=== PATIENT | female | born 1970 | race Caucasian/White ===

== ENCOUNTER → 2017-07-24 | Outpatient (CLI) | payer OTHER ==
[~2017-07-24] MED LIST: OMEGA; TELM40 PO; [UNRECOGNIZED DRUG - CODE] PO; [UNRECOGNIZED DRUG - OTHER]; [UNRECOGNIZED DRUG - REMARK]
== END | disposition home or self-care (01) ==
LOC: RADPV 15:09
PROVIDERS: ATTEND Family Medicine
DX: S62.91XA Unspecified fracture of right hand, initial encounter for closed fracture (principal); S52.91XA Unspecified fracture of right forearm, initial encounter for closed fracture; M25.521 Pain in right elbow; X58.XXXA Exposure to other specified factors, initial encounter; Y93.89 Activity, other specified; Y92.89 Other specified places as the place of occurrence of the external cause; Y99.8 Other external cause status